=== PATIENT | male | born 1990 | race Caucasian/White ===

== ENCOUNTER 2017-10-15 19:09 | Emergency (ER) | payer SELFPAY, OTHER | END 2017-10-16 02:58 | disposition left against medical advice (07) | LOC: FTE 19:09 | DX: Z53.21 Procedure and treatment not carried out due to patient leaving prior to being seen by health care provider (principal) ==

== ENCOUNTER 2018-03-15 09:20 | Emergency (ER) | payer OTHER ==
[2018-03-15] MEDS: DIPHTH/TET/ACEL PERTUSS (ADULT) 0.5 ML VIAL IM* (10:17)
[2018-03-15 11:45] LABS: HIV 1&2 ANTIBODY NEGATIVE (NEGATIVE)
== END 2018-03-15 12:23 | disposition home or self-care (01) ==
LOC: E/R 09:20
DX: S69.92XA Unspecified injury of left wrist, hand and finger(s), initial encounter (principal); E66.9 Obesity, unspecified; F15.10 Other stimulant abuse, uncomplicated; W46.0XXA Contact with hypodermic needle, initial encounter; Y92.9 Unspecified place or not applicable; Z23 Encounter for immunization; Z68.33 Body mass index [BMI] 33.0-33.9, adult
CPT/HCPCS: 73100; 86703; 90471; 90715; 99283-25